=== PATIENT | male | born 1985 | race Caucasian/White ===

== ENCOUNTER 2018-03-03 17:04 | Emergency (ER) | payer OTHER ==
[2018-03-03 17:05] VITALS: BMI 25.0
[2018-03-03 17:14] VITALS: RESP 18; TEMP 97.9
[2018-03-03] MEDS ORDERED: Sodium Chloride 0.9% 500 ML IV STA (18:01)
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
[2018-03-03 19:03] LABS: ALB/GLOB RATIO 1.2 (1.1-1.8); ALBUMIN 4.3 g/dL (3.0-4.8); ALT/SGPT 27 U/L (7-56); AST/SGOT 28 U/L (17-59); BLOOD UREA NITROGEN 15 mg/dL (7-21); CALCIUM 9.5 mg/dL (8.4-10.5); GFR AFRICAN-AMERICAN > 60; GFR NON-AFRICAN AMERICAN > 60
[2018-03-03 19:04] LABS: BASO # 0.01 K/mm3 (0.0-2.0); BASO % 0.1 % (0.0-3.0); EOS # 0.1 (0.0-0.7); EOS % 0.4 % (1.5-5.0); GRAN # 8.25 (1.4-6.5); LYMPH # 1.6 (1.2-3.4); LYMPH % 14.1 % (22.0-35.0); MEAN CELL VOLUME 91.4 fl (80.0-105.0); MEAN CORPUSCULAR HEMOGLOBIN 32.1 pg (25.0-35.0); MEAN CORPUSCULAR HGB CONC 35.1 g/dl (31.0-37.0); MEAN PLATELET VOLUME 11.6 fl (7.0-11.0); MONO # 1.4 (0.1-0.6); MONO % 12.4 % (1.0-6.0); RBC 4.67 10^6/uL (3.5-6.1); RED CELL DISTRIBUTION WIDTH 12.4 % (11.5-14.5); WHITE BLOOD COUNT 11.3 10^3/ul (4.5-11.0)
[2018-03-03 20:32] VITALS: BP 115/75; PULSE 78; O2SAT 99
--- NOTE | 2018-03-04 09:04 | RAD ---
PROCEDURE: CHEST RADIOGRAPH, 1 VIEW HISTORY: Back pain COMPARISON: 08/12/2015 FINDINGS: LUNGS: There is a suture line in the right apex. The lungs are otherwise clear. PLEURA: No pneumothorax or pleural fluid seen. CARDIOVASCULAR: Normal. OSSEOUS STRUCTURES: No significant abnormalities. VISUALIZED UPPER ABDOMEN: Normal. OTHER FINDINGS: None. IMPRESSION: No active disease.
== END 2018-03-03 20:30 | disposition home or self-care (01) ==
LOC: ED 17:04
DX: M54.12 Radiculopathy, cervical region (principal); M54.2 Cervicalgia; R51 Headache
CPT/HCPCS: 71045; 80053; 85025; 87804; 96374; 99283; J1885; J7040